=== PATIENT | male | born 1980 | race Caucasian/White ===

== ENCOUNTER 2022-01-22 13:56 | Emergency (ER) | payer OTHER, SELFPAY ==
--- NOTE | ~2022-01-22 | XR_ITS ---
EXAMINATION: XR CHEST CLINICAL INFORMATION: Chest pain and shortness of breath COMPARISON: None TECHNIQUE: Frontal view of the chest was obtained. FINDINGS: No significant abnormality is noted involving the heart, lungs, mediastinum, bony thorax or soft tissues. XR/XR chest 1V IMPRESSION: Unremarkable examination.
--- NOTE | 2022-01-22 14:02 | ECG_ITS ---
Test Reason : CHEST PAIN Blood Pressure : / mmHG Vent. Rate : 101 BPM Atrial Rate : 101 BPM P-R Int : 128 ms QRS Dur : 108 ms QT Int : 346 ms P-R-T Axes : 056 038 140 degrees QTc Int : 448 ms Sinus tachycardia Possible Left atrial enlargement Left ventricular hypertrophy with repolarization abnormality ( Sokolow-Tavares , Andre product ) Abnormal ECG No previous ECGs available Referred By: Daniella Maddox Electronically Signed By:MATT VELEZ
--- NOTE | 2022-01-22 14:07 | ED.CHESTPAIN ---
HPI - Chest Pain General Chief Complaint: Chest Pain Stated Complaint: LEFT ARM TINGLING,NECK/CHEST PAIN X'S 1 HOUR Time Seen by Provider: 01/22/22 14:00 Source: patient Mode of arrival: ambulatory Limitations: no limitations History of Present Illness HPI narrative: This is a 41-year-old male no significant medical history presenting to the emergency department with complaints of left anterior chest wall pain that radiates to his left arm that started about 1 hour prior to his arrival. Patient tells me he was sitting at a desk working and he suddenly started experiencing chest pain with radiation to the left arm, he reports intermittent numbness and tingling to that left arm in a he also describes to me that his left arm feels slightly heavier than his right. He tells me this is never happened to him before. He tells me the pain is worse with deep inspiration. He also reports worsening of pain with movement of that left extremity. He denies any family or personal cardiac history. No history of sudden cardiac . Patient denies shortness of breath, abdominal pain, nausea, vomiting, fevers, chills, headache, dizziness, weakness, changes in speech. He tells me that at this time he is still experiencing some discomfort however it is much better than when it 1st started about an hour ago. Patient denies previous history of DVT/PE, also denies recent travel or sedentary lifestyle. MD complaint: chest pain and chest discomfort Onset (ago): hour(s) (1) Timing of current episode: constant and other (improving ) Prior episodes: No Onset: during rest Pain location: left chest Pain radiation: none Severity: moderate Quality: sharp and other (stabbing ) Relieving factors: nothing Exacerbating factors: movement Treatment prior to arrival: none Related Data Allergies Allergy/AdvReac Type Severity Reaction Status Date / Time Unable to Assess Allergy Verified 01/22/22 14:02 Review of Systems Review of Systems: Constitutional : No Weight loss, No Fever, No Chills, No Fatigue, No Malaise ENT/Mouth : No sore throat, No Rhinorrhea Eyes: No Eye Pain, No Swelling, No Redness Cardiovascular : + Chest Pain, No SOB, No Dyspnea on Exertion, No Orthopnea, No Edema, No Palpitations Respiratory : No Cough, No Sputum, No Wheezing Gastrointestinal : No Nausea, No Vomiting, No Diarrhea, No Constipation, No abdominal Pain, No Hematochezia, No Melena Genitourinary : No Dysuria, No Urinary Frequency, No Hematuria, Musculoskeletal : No joint pain, No Myalgias, No Joint Swelling Skin : No Skin Lesions, No rash Neuro : No Weakness, No Numbness, No Dizziness, No Headache Psych : No Anxiety/Panic, No Depression All other systems reviewed and are negative Yes all other systems are reviewed and are negative [facility] Past Medical History Attestation statement: The following information was validated with the patient. Source: old records reviewed and nursing notes reviewed Social History Social History Advance Directives: No Advance Directives Information Provided: No Physical Exam Vital Signs: Vital Signs: Last Vital Signs Temp 98.3 F 01/22/22 17:43 Pulse 87 01/22/22 17:43 Resp 17 01/22/22 17:43 BP 116/75 01/22/22 17:43 Pulse Ox 98 01/22/22 17:43 BMI result Body Mass Index 27.8 Appearance: Alert.? Oriented X3.? No acute distress.? Head: Normocephalic, atraumatic, no step-offs or deformities. Face symmetric. Fluid speech. Eyes: Pupils equal, round and reactive to light.? ENT: Pharynx normal.? Neck: Normal inspection.? Neck supple.? CVS: Normal heart rate and rhythm.? Pulses normal.? Respiratory: No respiratory distress.? Breath sounds normal.? Abdomen: Soft and nontender.? Skin: Skin warm and dry.? Normal skin color.? Normal skin turgor.? Extremities: No lower extremity edema.? No calf ttp. 5/5 strength to bilateral upper and lower extremities Back: No midline tenderness, no C-spine tenderness, full range of motion, no CVA tenderness bilaterally Neuro: Oriented X 3.? No motor deficit.? No sensory deficit. CN 2-12 intact . 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 Normal sensation to upper and lower extremities. Course Reevaluation(s) Reevaluation #1: CBC within normal limits. No acute electrolyte abnormalities. Transaminases slightly elevated. Troponin 11.1 will repeat at 05:30. COVID negative. Time: 15:14 Reevaluation #2: Patient reports to me that the chest pain has subsided, he tells me he still feels some tingling down his left arm however. He feels significantly better than he did when he arrived. Time: 17:15 Reevaluation #3: 2nd troponin 12.4, unlikely that this is ACS, pain is reproducible likely musculoskeletal pain. There also no acute findings on EKG. D-dimer negative, unlikely that this is a PE. Patient has no cardiac risk factors. I discussed this case with doctor Latrice, recommends outpatient follow-up w/ cardiology. At time of discharge patient tells me his chest pain subsided he just feels intermittent tingling in his left arm. Neuro exam is nonfocal. NIH stroke scale still 0. Patient appears well, vital signs stable in no acute distress. Comfortable discharge home. Time: 17:54 MDM - Chest Pain MDM Narrative Medical decision making narrative: 1411 41-year-old male presents with left sided anterior chest wall pain with radiation to left upper extremity reports associated numbness, tingling to that left upper extremity. No significant cardiac history. This started about an hour prior to his arrival. No cardiac risk factors identified. To clarify from nursing no patient said that he sometimes gets dizzy however he was not reporting dizziness today. Physical examination benign. Neuro exam nonfocal. Normal cerebellar function. Regular rate and rhythm. Lungs clear. Abdomen soft nontender nondistended. NIH score of 0 Plan at this time is EKG, D-dimer, chest x-ray, basic labs, troponin, cardiac monitoring. Will rule out pe and acs Medical Records Data Attestation: I reviewed the patient's medical records. Lab Data Attestation: I reviewed the patient's lab results. Result diagrams: 01/22/22 17:20 01/22/22 14:33 Labs: Lab Results 01/22/22 01/22/22 01/22/22 Range/Units 14:33 14:33 14:34 WBC (4.8-10.8) X10*3/uL RBC (4.60-5.80) X10*6/uL Hgb (14.0-18.0) g/dl Hct (42.0-52.0) % MCV (80.0-98.0) fL MCH (27.0-33.0) pg MCHC (31.0-36.0) g/dl RDW (11.0-16.0) % Plt Count (160-400) X10*3/uL MPV (9.4-12.4) fL Immature Gran % (Auto) (0.0-0.4) % Neut % (Auto) (45-73) % Lymph % (Auto) (20-40) % [place] % (Auto) (2-11) % Eos % (Auto) (0-4) % Baso % (Auto) (0-2) % Lymph # (Auto) (1.2-4.9) X10*3/uL [place] # (Auto) (0.1-1.2) X10*3/uL Eos # (Auto) (0.0-0.4) X10*3/uL Baso # (Auto) (0.0-0.2) X10*3/uL Abs Immat Gran (auto) (0.00-0.03) X10*3/uL Absolute Neuts (auto) (2.0-8.3) x10*3/uL Absolute Nucleated RBC (0.0-0.012) X10*3/uL Nucleated RBC % (auto) (0.0-0.2) /100WBC D-Dimer High Sensitivty NG/ML Sodium 139 (135-145) mmol/L Potassium 4.1 (3.3-5.1) mmol/L Chloride 108 (96-108) mmol/L Carbon Dioxide 24 (22-29) mmol/L Anion Gap 11 L (12-20) BUN 15 (9-16) mg/dL Creatinine 0.88 (0.5-1.4) mg/dL Estim Creat Clear Calc 117.3 Estimated GFR > 60 Random Glucose 112 (60-115) mg/dL Calcium 9.1 (8.4-10.2) mg/dL Magnesium 2.0 (1.6-2.6) mg/dL Total Bilirubin 0.4 (0.0-1.0) mg/dL AST 40 H (5-37) U/L ALT 72 H (0-40) U/L Alkaline Phosphatase 82 (39-117) U/L Troponin I High Sens 11.1 (<3.5-35.0) ng/L Total Protein 7.0 (6.5-8.0) g/dL Albumin 4.0 (3.5-5.0) g/dL COVID-19 (AMILCAR) Negative (Negative) COVID-19 Clin Com See Note 01/22/22 01/22/22 01/22/22 Range/Units 14:34 17:20 17:20 WBC 10.2 (4.8-10.8) X10*3/uL RBC 5.09 (4.60-5.80) X10*6/uL Hgb 15.3 (14.0-18.0) g/dl Hct 45.4 (42.0-52.0) % MCV 89.2 (80.0-98.0) fL MCH 30.1 (27.0-33.0) pg MCHC 33.7 (31.0-36.0) g/dl RDW 12.2 (11.0-16.0) % Plt Count 395 (160-400) X10*3/uL MPV 9.6 (9.4-12.4) fL Immature Gran % (Auto) 0.4 (0.0-0.4) % Neut % (Auto) 65.0 (45-73) % Lymph % (Auto) 28.0 (20-40) % [place] % (Auto) 5.2 (2-11) % Eos % (Auto) 0.9 (0-4) % Baso % (Auto) 0.5 (0-2) % Lymph # (Auto) 2.9 (1.2-4.9) X10*3/uL [place] # (Auto) 0.5 (0.1-1.2) X10*3/uL Eos # (Auto) 0.1 (0.0-0.4) X10*3/uL Baso # (Auto) 0.1 (0.0-0.2) X10*3/uL Abs Immat Gran (auto) 0.04 H (0.00-0.03) X10*3/uL Absolute Neuts (auto) 6.7 (2.0-8.3) x10*3/uL Absolute Nucleated RBC 0.000 (0.0-0.012) X10*3/uL Nucleated RBC % (auto) 0.0 (0.0-0.2) /100WBC D-Dimer High Sensitivty < 150 NG/ML Sodium (135-145) mmol/L Potassium (3.3-5.1) mmol/L Chloride (96-108) mmol/L Carbon Dioxide (22-29) mmol/L Anion Gap (12-20) BUN (9-16) mg/dL Creatinine (0.5-1.4) mg/dL Estim Creat Clear Calc Estimated GFR Random Glucose (60-115) mg/dL Calcium (8.4-10.2) mg/dL Magnesium (1.6-2.6) mg/dL Total Bilirubin (0.0-1.0) mg/dL AST (5-37) U/L ALT (0-40) U/L Alkaline Phosphatase (39-117) U/L Troponin I High Sens 12.4 (<3.5-35.0) ng/L Total Protein (6.5-8.0) g/dL Albumin (3.5-5.0) g/dL COVID-19 (AMILCAR) (Negative) COVID-19 Clin Com ECG Data ECG #1: Attestation: I personally reviewed and interpreted this ECG as follows: ECG interpretation date: 01/22/22 ECG interpretation time: 15:12 Prior ECG tracings: not available for review Interpretation: Ventricular rate of 101, CA normal, QRS normal, QT/QTC normal. EKG shows sinus tachycardia possible left atrial enlargement, no ST elevations or inversions concerning for ischemia. No previous EKGs to compare with. Critical Care Time Critical Care Time Critical Care Time: No Discharge Plan Discharge Clinical Impression: Chest pain not due to acute coronary syndrome Patient Disposition: Home, Self-Care Additional Instructions: Take your medications as prescribed. If you were prescribed antibiotics today, it is important that you take your medication to their entirety, do not skip any doses, do not finish them early. Follow-up with your primary care provider this week. Follow-up with cardiology call and schedule an appointment tomorrow. Return to the emergency department with new or worsening symptoms. Such as fevers, chills, chest pain, shortness of breath, nausea, vomiting, dizziness, headache, vision changes, lethargy In case of emergency call 911 Referrals: Oliver Gutierrez MD [Physician] - 1 week Physician,Unknown J [Primary Care Provider] - 3 days Stand Alone Forms: Work/School Release
[2022-01-22 14:30] VITALS: BP 120/76; BP 125/71; PULSE 102; PULSE 103; RESP 16; TEMP 37.1; O2SAT 97; BMI 27.8
[2022-01-22 14:58] LABS: Alanine Aminotransferase 72 U/L (0-40); Alkaline Phosphatase 82 U/L (39-117); Anion Gap 11 (12-20); Aspartate Amino Transferase 40 U/L (5-37); Bilirubin Total 0.4 mg/dL (0.0-1.0); Blood Urea Nitrogen 15 mg/dL (9-16); Calcium 9.1 mg/dL (8.4-10.2); Carbon Dioxide 24 mmol/L (22-29); Chloride 108 mmol/L (96-108); Creatinine Clr Calc Pharmacy 117.3; Estimated Glomerular Filt Rate > 60; Glucose Random 112 mg/dL (60-115); Potassium 4.1 mmol/L (3.3-5.1); Sodium 139 mmol/L (135-145)
[2022-01-22 15:00] LABS: COVID-19 Test Negative (Negative)
[2022-01-22 15:04] LABS: Troponin-I High Sensitivity 11.1 ng/L (<3.5-35.0)
[2022-01-22 15:53] LABS: D Dimer High Sensitivity < 150 NG/ML
[2022-01-22 17:28] LABS: Basophils Absolute Auto 0.1 X10*3/uL (0.0-0.2); Basophils Percent Auto 0.5 % (0-2); Eosinophils Absolute Auto 0.1 X10*3/uL (0.0-0.4); Eosinophils Percent Auto 0.9 % (0-4); Hematocrit 45.4 % (42.0-52.0); Hemoglobin 15.3 g/dl (14.0-18.0); Imm Gran Abs Auto 0.04 X10*3/uL (0.00-0.03); Imm Gran Pct Auto 0.4 % (0.0-0.4); Lymphocytes Absolute Auto 2.9 X10*3/uL (1.2-4.9); Mean Corpuscular HGB Conc 33.7 g/dl (31.0-36.0); Mean Corpuscular Hemoglobin 30.1 pg (27.0-33.0); Mean Corpuscular Volume 89.2 fL (80.0-98.0); Mean Platelet Volume 9.6 fL (9.4-12.4); Monocytes Absolute Auto 0.5 X10*3/uL (0.1-1.2); Monocytes Percent Auto 5.2 % (2-11); Neutrophils Absolute Auto 6.7 x10*3/uL (2.0-8.3); Platelet Count 395 X10*3/uL (160-400); Red Blood Count 5.09 X10*6/uL (4.60-5.80); Red Cell Distribution Width 12.2 % (11.0-16.0); White Blood Count 10.2 X10*3/uL (4.8-10.8)
[2022-01-22 17:43] VITALS: BP 116/75; PULSE 87; RESP 17; TEMP 36.8; O2SAT 98
[2022-01-22 17:49] LABS: Troponin-I High Sensitivity 12.4 ng/L (<3.5-35.0)
== END 2022-01-22 18:05 | disposition home or self-care (01) ==
PROVIDERS: Physician Assistant; Emergency Provider Emergency Medicine
DX: R07.89 Other chest pain (principal); M79.602 Pain in left arm; M54.2 Cervicalgia; Z20.822 Contact with and (suspected) exposure to COVID-19; Z79.899 Other long term (current) drug therapy
CPT/HCPCS: 36415; 71045; 80053; 83735; 84484; 85025; 85379; 87635; 93005; 99284; 99285